=== PATIENT | female | born 2000 | race Caucasian/White ===

== ENCOUNTER 2021-10-22 20:16 | Emergency (ER) | payer MEDICAID ==
[~2021-10-22] VITALS: Ht 154.9 cm; Wt 61.2 kg
[2021-10-22 20:40] VITALS: BP 112/74
--- NOTE | 2021-10-22 20:48 | NUR ---
TO LOBBY FOLLOWING TRIAGE
[2021-10-22 21:54] VITALS: BP 112/74
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
--- NOTE | 2021-10-22 21:54 | NUR ---
seen by ERMD no nursing interventions needed.
== END 2021-10-22 21:54 | disposition home or self-care (01) ==
LOC: MED 20:16
DX: S13.4XXA Sprain of ligaments of cervical spine, initial encounter (principal); S39.91XA Unspecified injury of abdomen, initial encounter; S29.9XXA Unspecified injury of thorax, initial encounter; F12.10 Cannabis abuse, uncomplicated; V98.8XXA Other specified transport accidents, initial encounter; Y93.89 Activity, other specified; Y92.89 Other specified places as the place of occurrence of the external cause; Y99.8 Other external cause status
CPT/HCPCS: 99281